=== PATIENT | female | born 1930 | race Caucasian/White ===

== ENCOUNTER 2018-05-07 02:04 | Emergency (ER) | payer OTHER, MEDICARE ==
[~2018-05-07] VITALS: Ht 167.6 cm; Wt 63.5 kg
[~2018-05-07 02:04] MED LIST: ALDACTONE50 MG PO; B12INJ IM; CAL-MAG-ZINC T1 EACH PO; CLARITIN10 MG PO; FOLBEE TABLET1 EACH PO; GLUCOSAMINE 1,1 EACH PO; HYDROCHLOROTHIA25 M1 PO; HYDROCODONE-AP1 EAC6 PO; LEVOTHYROXINE 0.1 MG PO; NORVASC10 MG PO; POTASSIUM20 PO; PREMARIN0.45 MG PO; PROZAC20 MG PO; VALIUM5 MG PO
== END 2018-05-07 03:55 | disposition home or self-care (01) ==
LOC: ER 02:04
DX: S01.01XA Laceration without foreign body of scalp, initial encounter (principal); Z85.3 Personal history of malignant neoplasm of breast; W01.0XXA Fall on same level from slipping, tripping and stumbling without subsequent striking against object, initial encounter; Y93.89 Activity, other specified; Y92.89 Other specified places as the place of occurrence of the external cause; Y99.8 Other external cause status